=== PATIENT | male | born 1950 | race Caucasian/White ===

== ENCOUNTER → 2019-12-27 09:06 | Outpatient (BNVA) | payer MEDICARE, OTHER, SELFPAY | PROVIDERS: Family Provider Family Medicine; PCP Family Medicine; Visit Provider Internal Medicine Cardiovascular Disease | DX: I10 Essential (primary) hypertension (principal); R94.39 Abnormal result of other cardiovascular function study; E78.5 Hyperlipidemia, unspecified; R07.2 Precordial pain; E09.9 Drug or chemical induced diabetes mellitus without complications | CPT/HCPCS: 80061 ==

== ENCOUNTER → 2020-03-10 14:43 | Outpatient (BNVA) | payer MEDICARE, OTHER, SELFPAY | PROVIDERS: Family Provider Family Medicine; PCP Family Medicine; Visit Provider Internal Medicine Cardiovascular Disease | DX: R94.39 Abnormal result of other cardiovascular function study (principal); I10 Essential (primary) hypertension; E78.5 Hyperlipidemia, unspecified; R07.2 Precordial pain; E09.9 Drug or chemical induced diabetes mellitus without complications | CPT/HCPCS: 87635 ==

== ENCOUNTER → 2020-07-26 09:32 | Outpatient (BNVA) | payer MEDICARE, OTHER, SELFPAY | PROVIDERS: Family Provider Family Medicine; PCP Family Medicine; Visit Provider Internal Medicine Cardiovascular Disease | DX: Z11.59 Encounter for screening for other viral diseases (principal) | CPT/HCPCS: 87635 ==

== ENCOUNTER 2020-07-28 08:57 | Observation (INO) | payer MEDICARE, OTHER, SELFPAY ==
[2020-07-26 11:48] LABS: Basophils % 0.6 %; Eosinophils # 0.1 10^3/uL (0.0-0.8); Eosinophils % 1.8 %; Hematocrit 45.2 % (42.0-52.0); Hemoglobin 14.6 g/dL (11.7-16.6); Lymphocytes # 0.9 10^3/uL (0.8-4.8); Lymphocytes % 25.4 %; Mean Corpuscular HGB Conc 32.3 g/dL (30.0-36.0); Mean Corpuscular Hemoglobin 30.5 pg (28.0-34.0); Mean Corpuscular Volume 94.4 fL (80-94); Mean Platelet Volume 9.1 fL (7.4-10.4); Monocytes # 0.5 10^3/uL (0.2-0.9); Neutrophils # 1.93 10^3/uL (1.8-7.7); Neutrophils % 57.6 %; Nucleated Red Blood Cells % 0 %; Platelet Count 239 10^3/cmm (130-400); Red Blood Count 4.79 10^6/uL (4.1-5.3); Red Cell Distribution Width 13.4 % (12.1-15.1); White Blood Count 3.4 10^3/uL (4.0-10.0)
[2020-07-26 11:59] LABS: INR 0.95 (0.8-1.2)
[2020-07-26 12:07] LABS: Anion Gap 12.6 (5-19); Blood Urea Nitrogen 25 mg/dL (8-23); Calcium 10.1 mg/dL (8.5-10.5); Carbon Dioxide 28 mmol/L (22-29); Chloride 102 mmol/L (98-107); Glomerular Filtration Rate 60.2 mL/min (90-130); Glucose 200 mg/dL (65-115); Osmolality Calculated 288 mOsm/kg (285-295); Potassium 4.6 mmol/L (3.5-5.1); Sodium 138 mmol/L (136-145)
[2020-07-28] VITALS (39 sets, daily range): BP systolic 86–127; BP diastolic 57–73; PULSE 56–78; RESP 15–26; TEMP 36.6–37.1; O2SAT 93–98; BMI 27.6
[2020-07-28] MEDS: diphenhydrAMINE 50 mg Capsule PO (06:34)
--- NOTE | 2020-07-28 07:00 | XACV_ITS ---
Ht: 180 cm Wt: 90 kg BSA: 2.14 m2 Gender: Male : 1950 Exam Priority: Routine Procedure(s): Procedure Description: Diagnostic procedure Procedure Description: PCI procedure Procedure Description: Left Heart Catheterization Procedure Description: PTCA Diagnostic Cath Status: Elective Diagnostic Findings LM has 0% stenosis. LAD is a medium caliber vessel which appears to taper off towards the LV apex. The proximal LAD was found to have mild to moderate diffuse coronary calcification. The first diagonal branch was found to have around 50% ostial narrowing. 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 The distal artery was found to relatively small caliber vessel. The circumflex artery is a medium caliber vessel which was found to have a segmental narrowing of around 50 to 60% proximally. The distal artery was found to have no significant stenotic lesions. Right coronary artery is a medium caliber vessel which was found to have a relatively high takeoff. The proximally and the mid segment was found to have minimal diffuse intimal irregularities. The PLV branch was found to have an ostial around 70 to 80% lesion. The PDA branch was found to no significant stenotic lesions. Coronary angiography shows right dominance. The intermedius artery was small caliber vessel with no significant stenotic lesion. PCI Indication: NSTE - ACS Interventional Findings RPAV: 80% stenosis treated with Drug Eluting Stent. 0% residual stenosis, MIMI: 3 flow. Successful PCI to Ostial PLV . Lesion was treated directly with NAVNEET INTEGRITY 3.0x12 mm stent posted at high LACIE . Stent was then post-dilated with NC EUPHORA 3.0 x 8 mm at 14 LACIE in its entire length to ensure proper approximation. Excellent angiographic result with MIMI-3 flow was achieved. . Conclusions This is a 69-year-old white male with a history of high blood pressure, dyslipidemia, type 2 diabetes, presented with complaints of some atypical chest symptoms and dyspnea on exertion. He also was complaining of easy fatigability. He had a myocardial perfusion imaging which revealed inconsistent reversible defect in the inferoapical region, suggestive of ischemia in the distribution of the right coronary artery. Initially it was decided to treat him medically. Because of his ongoing, worsening of the symptoms, in order to further evaluate his coronary status, a cardiac catheterization was recommended. Patient underwent left heart catheterization with left and right coronary angiogram and LV angiogram today. The findings are as follows. High-grade lesion(-70 to 80%) in the ostium of the PLV branch of the right coronary artery. 50 to 60% lesion in the proximal circumflex artery. Mild disease in the other vessels. Mild to moderate coronary calcification in the proximal segments of the artery. LV ejection fraction of 50% with mild diffuse hypokinesia of the LV apex. Normal LVEDP. I reviewed and discussed the cardiac catheterization findings with Dr. Velazco. Based on the patient's clinical presentation and the other objective findings, it was thought to be appropriate to consider PCI of the PLV lesion. At this point, Dr. Velazco took over further management of this patient. RPAV was treated with Drug Eluting Stent. Recommendations 1-Return to inpatient for close monitoring and routine cath care 2-Risk factor modification for secondary prevention 3-Statin and aspirin 81 mg life--long, if tolerated 4-Continue Plavix 75mg p.o. daily for at least one year. We will assess at the end of one year again to continue if further or not 5-Continue optimal medical management 6-Follow up with Dr. Montero in four weeks and your primary care in 10 days . Diagnostic RX Recommendation: PCI w/o planned CABG Ejection Fraction: 50.0 % LV EDP: 10 mmHg Left Ventriculography Findings: The LV angiogram was performed the VICKERS projection. The LV cavity appears to be of normal size. There was mild diffuse hypokinesia of the LV apex. The overall ejection fraction was around 50%. The LVEDP was 10 mmHg which went up to 16, following the LV angiogram. No significant mitral valve prolapse or any mitral regurgitation.. Pressures Phase:Rest AO : 99 mmHg / 53 mmHg ( 72 mmHg ) @ 2:45:00 AM 104 mmHg / 48 mmHg ( 72 mmHg ) @ 2:45:00 AM LV : 104 mmHg / -4 mmHg / @ 2:44:00 AM 103 mmHg / -4 mmHg / @ 2:44:00 AM 106 mmHg / -3 mmHg / @ 2:45:00 AM 106 mmHg / -3 mmHg / @ 2:45:00 AM Valves Phase:DefaultPhase AV : 12.0 mmHg @ 8:43:32 AM AV Mean Gradient: 12.0 mmHg @ 8:43:32 AM Clinical Evaluation EBL: 5mL-10mL Procedural Details Procedure Consent Obtained. Admit Source: Out Patient. Pre-Procedure Time Out. Identified patient by full name and date of as verbalized by the patient/guarantor. Does the consent match the physician's order: Yes. Accurate & Complete Informed Consent: Yes. Inpatient/Outpatient History & Physical on Chart: Yes. If H&P is completed, is and addenduem needed: No; If yes, is the addendum complete: N/A. Visualize and Verify Site with Patient/Guarantor: N/A. Relevant Radiology Images available: N/A. Pre-op teaching completed and patient verbalized understanding. The risks, benefits, and alternatives of sedation and/or procedure were discussed by physician. The patient agrees to continue. Procedure started. Correct patient, site and procedure confirmed by cath team. PERRLA. 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 Lungs clear x 5 lobes. IV Site on Arrival: 20 gauge in the left anticubital. Pre Procedural Pulses: bilateral dorsalis pedis was 2+. Pre Procedural Pulses: bilateral posterior tibial was 2+. Pre Procedural Pulses: bilateral radial was 3+. Oxygen started at 2liters/min via nasal canula. bilateral groins was prepped with chloroprep then draped in the usual sterile fashion. right radial was prepped with chloroprep then draped in the usual sterile fashion. Baseline sample Acquired. HR: 62 BPM. Physician notified. Physician arrived. Physician scrubbed in. Immediate Pre-Procedure Time Out. Correct Patient: Yes; Correct Procedure: Yes; Correct Site: Yes; Correct Patient Position: Yes; Correct Supplies: Yes; Dried Flammable Prep: Yes; Blood Products Available: N/A;. Lidocaine 1% infiltrated to the right radial. Arterial access obtained. A 5 yemeni Everette catheter in over wire. wire out. Multiple views taken of left coronary artery. Catheter redirected to the RCA. Catheter out. A 5 yemeni JR4 catheter in over wire. wire out. Multiple views taken of right coronary artery. Dr. Velazco notified. A 5 yemeni Angled Pig catheter in over wire. EDP Sample taken: LV 104/-5,15; HR: 66 BPM; SpO2: 98%. LV gram performed in VICKERS @ 10 mL/second for a total of 30 mL. EDP Sample taken: LV 106/-4,16; HR: 67 BPM; SpO2: 97%. Pullback taken: LV 106/-4,16; AO 99/53(72); Mean: 12mmHg, Peak to Peak: 12mmHg, SEP: 8sec/min; HR: 67 BPM; SpO2: 98%. Dr. Velazco arrived. going over results. Dr. Montero notified . Dr. Velazco scrubbed in. 6 yemeni JR 4 guide catheter was inserted over the wire. Hardy guidewire was advanced through the guide catheter to lesion in the PLV. Inflation Number : 1 A MAILE Morrissey NAVNEET 3.0X12 CHRISTIANNE -Lot Number#[id number] exp date 02-12-2022 was prepped and advanced across the PLV. The stent was deployed at 10 LACIE for 0:22 seconds. deployment balloon out. Inflation number : 1 A MAILE WEEKS EUPHORA RX [id number] BALLOON was prepped and advanced across the PLV , then inflated to 14 LACIE for 0:33 seconds. Balloon and wire out. Results checked. Balloon inserted to lesion in the PLV. Balloon out. balloon not inflated. wire and 2nd balloon are out. No inflation. catheter out. TR band placed. Hemostasis obtained. Post Procedure: Pulses reassessed and unchanged. PERRLA. 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 No VTE prophylaxis required. Total IV fluids: 350 mL. Contrast type used: Omnipaque 300 mgI/mL, 500 mL bottle. Contrast Material : Omnipaque 308 ml. Complications: none. Estimated blood loss: 5mL-10mL. [facility] Clinical Fraility Score: 3: Managing Well. Rodbuster Indications: New Onset Angina. Chest Pain Symptom Assessment: Abnormal stress test. Cardiovascular Instability: No,. Chest Pain Symptom Assessment: Typical Angina Symptoms. PCI Indication: New Onset Angina. Post-op diagnosis: Successful angioplasty with stent. A TR Band was successful obtaining hemostatsis at the Right Radial artery insertion site. Procedure completed. Patient transferred by wheelchair to 1st floor. Medication's Wasted: Lidocaine 1% = 18 mL. Medication's Wasted: Nitro = 49.4 mg. Medication's Wasted: Heparin = 2000 units. Medication's Wasted: Other = verapamil 1.5 mg. Vital chart was stopped. Site: Right Radial artery Sheath Size: 6 Fr Hemostasis Method: TR Band Hemostasis Success: Successful Procedure Medications Start: 7:11 AM Stop: 7:11 AM Medication: Versed Amount: 1 mg Route: I.V. Start: 7:11 AM Stop: 7:11 AM Medication: Fentanyl Amount: 50 mcg Route: I.V. Start: 7:24 AM Stop: 7:24 AM Medication: 0.9% Saline Amount: 250 ml Route: I.V. bolus Start: 7:25 AM Stop: 7:25 AM Medication: Nitrogylcerin Amount: 200 mcg Route: I.A. Start: 7:29 AM Stop: 7:29 AM Medication: Versed Amount: 1 mg Route: I.V. Start: 7:29 AM Stop: 7:29 AM Medication: Fentanyl Amount: 50 mcg Route: I.V. Start: 7:29 AM Stop: 7:29 AM Medication: Heparin Amount: 5000 units Route: I.V. Start: 8:03 AM Stop: 8:03 AM Medication: Heparin Amount: 4000 units Route: I.V. Start: 8:08 AM Stop: 8:08 AM Medication: Aggrastat 12.5 mg/250 mL Amount: 45 ml Route: I.V. bolus Start: 8:09 AM Stop: 8:09 AM Medication: Aggrastat 12.5 mg/250 mL Amount: 16.2 ml/hr Route: I.V. drip Start: 8:14 AM Stop: 8:14 AM Medication: Nitrogylcerin Amount: 200 mcg Route: I.C. I, the attending physician, have reviewed and verified all procedure medications. Yes, all medications given per verbal order History/Risk Factors Hypertension: Yes Dyslipidemia: Yes Diabetic Therapy: Oral Peripheral Arterial Disease (PAD): No Myocardial Infarction (HI): No Obesity: No Renal Disease: No Tobacco Use: Never Prior Interventions PCI: No CABG: No Valve Surgery: No Report Signatures Interventional Workflow - Finalized by: Izzy Velazco MD on 08/10/2020 5:48:50 PM Diagnostic Workflow - Finalized by:Dr Cristian Montero MD [facility] on 07/28/2020 4:38:32 PM
--- NOTE | 2020-07-28 07:13 | W.PM.OPSUD ---
Surgery/Procedure H&P Update DATE OF PROCEDURE: July 28, 2020 DATE H&P PERFORMED: 07/19/20 H&P UPDATE INFORMATION: I have reviewed H&P completed within last 30 days, I have examined patient prior to procedure and No changes to prior documentation PREOP DIAGNOSIS: Possible ASHD PLANNED PROCEDURE: Operation Date: 07/28/20 07:00 Proposed Procedures p Cardiac Catheterization(Left) - Cristian Montero MD PATIENT REASSESSED PRIOR TO SEDATION, WITH NO CHANGE NOTED: Yes PHYSICAL EXAM: alert, oriented x 3, clear to auscultation bilaterally and regular rate & rhythm AIRWAY EVAL/ANESTHESIA PLAN: normal airway, see other exam findings, ASA II, Risks, benefits & alternatives of sedation and/or procedure discussed and Patient agrees to continue as planned
[2020-07-28] MEDS: clopidogrel 300 mg Tablet 600 MG PO (09:52)
[2020-07-28] MEDS: pantoprazole DR 40 mg Tablet PO (09:52)
[2020-07-28 10:02] LABS: Glucose Point of Care 175 mg/dL (70-110)
[2020-07-28 16:56] LABS: Glucose Point of Care 158 mg/dL (70-110)
[2020-07-28] MEDS: atorvastatin 40 mg Tablet PO (20:13)
[2020-07-28] MEDS: sodium chloride 0.9% 1,000 ML 100 ML IV (20:13)
[2020-07-28] MEDS: aspirin 81 mg EC Tablet PO (20:13)
[2020-07-28] MEDS: metoprolol succinate ER (24 HR) 25 mg Tablet PO (20:13)
--- NOTE | 2020-07-28 21:41 | PC.NURSE ---
Patient does not have any complaints at this time. Right wrist post-cath site WNL. Will monitor.
[2020-07-29] VITALS (7 sets, daily range): BP systolic 110–126; BP diastolic 70–78; PULSE 65–84; RESP 17–20; TEMP 36.4–36.8; O2SAT 95–98
--- NOTE | 2020-07-29 04:49 | PC.NURSE ---
Patient does not have any complaints at this time. Right wrist post-cath site WNL. Will monitor.
[2020-07-29 04:55] LABS: Basophils % 0.5 %; Eosinophils # 0.1 10^3/uL (0.0-0.8); Eosinophils % 1.7 %; Hematocrit 41.1 % (42.0-52.0); Hemoglobin 13.5 g/dL (11.7-16.6); Lymphocytes # 0.8 10^3/uL (0.8-4.8); Lymphocytes % 19.1 %; Mean Corpuscular HGB Conc 32.8 g/dL (30.0-36.0); Mean Corpuscular Hemoglobin 30.3 pg (28.0-34.0); Mean Corpuscular Volume 92.4 fL (80-94); Mean Platelet Volume 9.4 fL (7.4-10.4); Monocytes # 0.5 10^3/uL (0.2-0.9); Monocytes % 12.7 %; Neutrophils # 2.65 10^3/uL (1.8-7.7); Neutrophils % 65.8 %; Nucleated Red Blood Cells % 0 %; Platelet Count 184 10^3/cmm (130-400); Red Blood Count 4.45 10^6/uL (4.1-5.3); Red Cell Distribution Width 13.4 % (12.1-15.1)
[2020-07-29 05:11] LABS: Anion Gap 15.1 (5-19); Blood Urea Nitrogen 23 mg/dL (8-23); Calcium 8.5 mg/dL (8.5-10.5); Carbon Dioxide 23 mmol/L (22-29); Chloride 105 mmol/L (98-107); Glomerular Filtration Rate 66.6 mL/min (90-130); Glucose 140 mg/dL (65-115); Osmolality Calculated 287 mOsm/kg (285-295); Potassium 4.1 mmol/L (3.5-5.1); Sodium 139 mmol/L (136-145)
[2020-07-29] MEDS: isosorbide mononitrate ER 30 mg Tablet PO (06:06)
[2020-07-29] MEDS: sodium chloride 0.9% 1,000 ML 100 ML IV (06:06)
[2020-07-29] MEDS: lisinopril 20 mg Tablet PO (08:22)
[2020-07-29] MEDS: pantoprazole DR 40 mg Tablet PO (08:23)
--- NOTE | 2020-07-29 09:39 | PM.PN ---
Subjective Subjective: Interval history: The patient is feeling okay with no chest pain or shortness of breath. No palpitation, dizziness or syncopal episodes. No arrhythmias on the monitor. No hematoma or bleeding at the radial arterial puncture site. He underwent cardiac authorization followed by PCI of the PLV lesion yesterday. He had an uneventful course so far. Medications: Reviewed: Yes Medication Review Details: Current Medications Acetaminophen (Tylenol) 650 mg PO Q6H PRN PRN Reason: MILD PAIN Al Hydrox/Mg Hydrox/Simethicone (Maalox) 30 ml PO Q15M PRN PRN Reason: INDIGESTION Alprazolam (Xanax) 0.25 mg PO TID PRN PRN Reason: ANXIETY Aspirin (Aspirin Ec) 81 mg PO BEDTIME [facility] Last Admin: 07/28/20 20:13 Dose: 81 mg Documented by: Atorvastatin Calcium (Lipitor) 40 mg PO BEDTIME [facility] Last Admin: 07/28/20 20:13 Dose: 40 mg Documented by: Atropine Sulfate (Atropine) 0.5 mg IVP PRN PRN PRN Reason: Symptomatic bradycardia Fentanyl (Sublimaze) 50 mcg IVP PRN PRN PRN Reason: Prior to sheath removal Sodium Chloride (Sodium Chloride 0.9%) 1,000 mls @ 100 mls/hr IV .Q10H [facility] Last Admin: 07/29/20 06:06 Dose: 100 mls/hr Documented by: Isosorbide Mononitrate (Imdur) 30 mg PO QAM [facility] Last Admin: 07/29/20 06:06 Dose: 30 mg Documented by: Lisinopril (Prinivil) 20 mg PO DAILY [facility] Last Admin: 07/29/20 08:22 Dose: 20 mg Documented by: Magnesium Hydroxide (Milk Of Magnesia) 30 ml PO DAILY PRN PRN Reason: CONSTIPATION Metoprolol Succinate (Toprol Xl) 25 mg PO BEDTIME [facility] Last Admin: 07/28/20 20:13 Dose: 25 mg Documented by: Naloxone HCl (Narcan) 0.1 mg IVP Q2M PRN PRN Reason: RESPIRATORY RATE < 8/MIN Nitroglycerin (Nitrostat) 0.4 mg SUBLINGUAL Q5M PRN PRN Reason: Chest Pain Non-Formulary Medication (Dapagliflozin [Farxiga]) 10 mg PO QAM [facility] Last Admin: 07/29/20 06:06 Dose: Not Given Documented by: Pantoprazole Sodium (Protonix) 40 mg PO DAILY JULIO C Last Admin: 07/29/20 08:23 Dose: 40 mg Documented by: Temazepam (Restoril) 15 mg PO BEDTIME PRN PRN Reason: INSOMNIA Vitals/I&O/Wt Last Vital Signs Temp 98.1 F 07/29/20 08:00 Pulse 84 07/29/20 08:00 Resp 20 H 07/29/20 08:00 BP 121/72 07/29/20 08:00 Pulse Ox 96 07/29/20 08:00 07/28/20 07/29/20 07/29/20 22:59 06:59 14:59 Intake Total 240 / 480 1288.333 / 1768.333 360 / 360 Balance 240 / 480 1288.333 / 1768.333 360 / 360 Weight last 48 hrs Weight 198 lb Physical Exam Narrative: EXAM NARRATIVE: GENERAL: The patient is alert and oriented times three. Not in any acute distress. HEENT: No significant pallor, icterus or lymphadenopathy.Oral cavity: There are no mucous membrane lesions. NECK: Trachea appears to be central. No masses noted. No JVD or thyromegaly appreciated. RESPIRATORY: Chest is symmetrical. No intercostals muscle retraction or any accessory muscle activation. There is no chest wall tenderness. Breath sounds are heard bilaterally. No rales or rhonchi heard. No evidence of any consolidation. BREASTS: Deferred. HEART: The heart sounds are normal. No S3 or S4. No significant murmurs. No pericardial rub ABDOMEN: No vessel pulsations or distention. No tenderness. No organomegaly appreciated. Bowel sounds are normally heard. : Deferred. RECTAL: Deferred. LYMPHATIC: No lymphadenopathy noted in the neck or groin. EXTREMITIES: No edema or cyanosis. No clubbing. No hematoma or bleeding at the radial arterial puncture site MUSCULOSKELETAL: No acute joint deformities or swelling SKIN: There are no significant rashes or ecchymosis NEUROPSYCHIATRIC: The patient is alert and oriented x3. Appears to be in a good mood. No tremors or rigidity noted. Data : 07/29/20 04:00 07/29/20 04:00 A&P Assessment and plan (1) Atherosclerotic heart disease of [place] coronary artery with other forms of angina pectoris: Patient underwent a cardiac authorization yesterday which revealed a high-grade lesion in the ostium of the PLV branch of the right coronary artery. He also had around 50 to 60% lesion in the proximal circumflex artery. Underwent PCI of the PLV lesion. Currently remaining stable with no specific symptoms. His overall functional status is improving. He will continue the Plavix aspirin and Lipitor in addition to current medications. Status: Acute (2) Hypertension: Currently normotensive. Continue with current medications. Status: Acute Qualifiers: Hypertension type: essential hypertension Qualified Code(s): I10 - Essential (primary) hypertension (3) Diabetes: Patient is on multiple oral hypoglycemics. Metformin was held. He may restart the metformin on next Friday. Continue on all the other current medications. 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 Status: Acute Additional A&P Information Since the patient is remained stable with no new symptoms, he is being discharged home today. [facility] will [facility] next Friday by the nurse practitioner. I will be seeing him in the office in 1 month. Attestations Medical Necessity Statement*: Patient discharged home today Coding Level of Care Code Acute Sheet Metal Journeyman for Tone Tillman Diagnoses Atherosclerotic heart disease of [place] coronary artery with other forms of angina pectoris I25.118 Hypertension I10 Hypertension type: essential hypertension Diabetes E09.9 Diabetes mellitus type: drug or chemical induced Diabetes mellitus bed bug exterminator insulin use: without mcc use Diabetes mellitus complication status: without complication Dyslipidemia E78.5
[2020-07-29] MEDS: clopidogrel 75 mg Tablet PO (11:30)
--- NOTE | 2020-07-31 11:46 | PC.RESP ---
PATIENT DOES NOT HAVE A QUALIFYING HX OF LUNG DISEASE AND DOES NOT QUALIFY FOR PULMONARY REHAB AT THIS TIME.
== END 2020-07-29 12:35 | disposition home or self-care (01) ==
LOC: CSU 09:16
PROVIDERS: Internal Medicine Cardiovascular Disease; Admitting Provider Internal Medicine Cardiovascular Disease; Family Provider Family Medicine; PCP Family Medicine; Visit Provider Internal Medicine Cardiovascular Disease
DX: I25.118 Atherosclerotic heart disease of native coronary artery with other forms of angina pectoris (principal); R94.39 Abnormal result of other cardiovascular function study; E78.5 Hyperlipidemia, unspecified; I10 Essential (primary) hypertension; E11.9 Type 2 diabetes mellitus without complications; Z79.82 Long term (current) use of aspirin; Z79.84 Long term (current) use of oral hypoglycemic drugs; Z82.49 Family history of ischemic heart disease and other diseases of the circulatory system
CPT/HCPCS: 12345; 36415; 36416; 80048; 82962; 85025; 85610; 86850; 86900; 93452; 96360; 96361; C1725; C1769; C1874; C1887; C1894; C9600; G0378; J1644; J2250; J3010; J3246; J3490; J7030; Q0163; Q9967

== ENCOUNTER → 2020-08-04 11:59 | Outpatient (BNVA) | payer MEDICARE, OTHER, SELFPAY | PROVIDERS: Family Provider Family Medicine; PCP Family Medicine; Visit Provider Nurse Practitioner Family | DX: I25.118 Atherosclerotic heart disease of native coronary artery with other forms of angina pectoris (principal); K21.9 Gastro-esophageal reflux disease without esophagitis; Z95.5 Presence of coronary angioplasty implant and graft | CPT/HCPCS: 80048 ==

== ENCOUNTER 2020-09-19 14:33 | Outpatient (RCR) | payer MEDICARE, OTHER, SELFPAY | END 2020-09-30 23:59 | disposition home or self-care (01) | LOC: CR 14:33 | PROVIDERS: Family Provider Family Medicine; PCP Family Medicine; Referring Provider Internal Medicine Cardiovascular Disease; Visit Provider Internal Medicine Cardiovascular Disease | DX: I25.118 Atherosclerotic heart disease of native coronary artery with other forms of angina pectoris (principal); Z95.5 Presence of coronary angioplasty implant and graft | CPT/HCPCS: 93798 ==

== ENCOUNTER 2020-10-01 08:50 | Outpatient (RCR) | payer MEDICARE, OTHER, SELFPAY | END 2020-10-30 23:59 | disposition home or self-care (01) | LOC: CR 08:50 | PROVIDERS: Family Provider Family Medicine; PCP Family Medicine; Referring Provider Internal Medicine Cardiovascular Disease; Visit Provider Internal Medicine Cardiovascular Disease | DX: Z95.5 Presence of coronary angioplasty implant and graft (principal) | CPT/HCPCS: 93798 ==

== ENCOUNTER 2020-10-31 11:33 | Outpatient (RCR) | payer MEDICARE, OTHER, SELFPAY | END 2020-11-30 23:59 | disposition home or self-care (01) | LOC: CR 11:33 | PROVIDERS: Family Provider Family Medicine; PCP Family Medicine; Referring Provider Internal Medicine Cardiovascular Disease; Visit Provider Internal Medicine Cardiovascular Disease | DX: Z95.5 Presence of coronary angioplasty implant and graft (principal) | CPT/HCPCS: 93798 ==

== ENCOUNTER 2020-12-05 11:02 | Outpatient (RCR) | payer MEDICARE, OTHER, SELFPAY | END 2020-12-31 23:59 | disposition home or self-care (01) | LOC: CR 11:02 | PROVIDERS: Family Provider Family Medicine; PCP Family Medicine; Referring Provider Internal Medicine Cardiovascular Disease; Visit Provider Internal Medicine Cardiovascular Disease | DX: Z95.5 Presence of coronary angioplasty implant and graft (principal) | CPT/HCPCS: 93798 ==

== ENCOUNTER 2021-01-24 15:19 | Outpatient (CLI) | payer MEDICARE, OTHER, SELFPAY ==
--- NOTE | 2021-01-24 15:31 | USCV_ITS ---
Bob Acevedo Age: 70 Gender: M : 1950 Exam Date: 01/24/2021 15:33 Ordering Phys: Enriqueta Caraballo APN Technologist: Ashley Alvarado Exam Location: [facility] Indication: screening HISTORY: Diameter (cm) AP x Transverse x Length Velocity (cm/s) Waveform Prox Aorta: 2.02 x 1.62 x 98.40 Mid Aorta: 1.73 x 2.08 x 88.70 Distal Aorta: 1.38 x 1.94 x 68.60 Right Iliac Prox: 1.05 x 1.38 x 65.10 Left Iliac Prox: 1.00 x 1.29 x 60.30 Stent Prox Landing x x Aneurysmal Sac Max x x Lt Lat Sac Dim Rt Lat Sac Dim Stent Dist Landing x x Right Iliac Stent x x Left Iliac Stent x x Right Renal Art Left Renal Art FINDINGS: CONCLUSIONS No evidence of abdominal aortic or bilateral iliac aneurysm. Moderate arteriovascular disease within the abdominal aorta. Ruddy Jansen MD (Electronically Signed) Final Date: 24 January 2021 16:56 S
== END 2021-01-24 15:20 | disposition home or self-care (01) ==
LOC: US 15:20
PROVIDERS: PCP Nurse Practitioner; Visit Provider Nurse Practitioner
DX: Z13.6 Encounter for screening for cardiovascular disorders (principal); Z87.891 Personal history of nicotine dependence
CPT/HCPCS: 76706

== ENCOUNTER 2022-01-07 06:55 | Outpatient (CLI) | payer MEDICARE, OTHER, SELFPAY ==
[2022-01-07 07:03] VITALS: BMI 27.1
--- NOTE | 2022-01-07 07:29 | ECG_ITS ---
[facility] Test Date: 2022-01-07 Pat Name: Bob Acevedo Department: Room: Gender: Male Dewaxer: Katerine Wu : 1950 Requested By: Cristian Montero Order Number: [id number] Catalina MD: Cristian Montero M.D. Interpretive Statements NAME OF STUDY: EXERCISE SESTAMIBI STRESS TEST INDICATION: Chest Pain, PROCEDURE: The baseline electrocardiogram showed normal sinus rhythm with normal ST-Ts. At the baseline, the patient's blood pressure was 135/79 mm Hg with a heart rate of 88. The patient exercised for 5 minutes and 58 seconds on a standard Kali protocol. Patient attained a maximum heart rate of 148 beats per minute(98% of the maximum predicted heart rate) with a blood pressure at the peak exercise of 195/67 mm Hg. The EKG at the peak exercise revealed some nonspecific ST-T changes in the inferior leads. Patient did not have any chest pain or any significant arrhythmis with the exercise Sestamibi was injected 1 minute prior to the peak exercise During the recovery phase, there were no new changes. Blood pressure at the end of the recovery phase was 128/81 mm Hg with a heart rate of 88 per minute. CONCLUSION: 1. Some nonspecific EKG changes with the treadmill exercise 2. No exercise-induced chest pain or cardiac arrhythmia 3. Fair exercise tolerance, attained a maximum of 7.0 METs 4. Sestamibi/Sestamibi perfusion results pending; see separate report. Electronically Signed On 01-25-2022 10:39:34 RV REPAIRER by Cristian Montero M.D. [id number]
--- NOTE | 2022-01-07 07:30 | NMCV_ITS ---
NM bear perf SPECT r/s* [id number] Bob Acevedo Age: 71 Gender: M : 1950 Exam Date: 01/07/2022 08:00 Ordering Phys: Cristian Montero MD ([email or web address]) Technologist: TENA Snider Exam Location: [facility] Indications: CHEST PAIN STRESS TEST Please see separate stress test report in [facility] for full findings IMAGE PROTOCOL Rest/Stress 1 Exercise Day Radiopharmaceutical Dose (mCi) Administration Site Administered by Rest: Tc-99m 10.9 IV TENA Bernal Sestamibi Stress:Tc-99m 32.9 IV TENA Bernal Sestamibi Rest: 07-Jan-2022 60 Discovery 630 Stress: 07-Jan-2022 30 Discovery 630 Radiopharmaceutical was injected at 93 % maximum heart rate. Images obtained in supine and prone position. SPECT RESULTS Technical Quality: Excellent Raw Data Analysis: Normal Image Corrections: No attenuation or motion correction applied Summed Stress Score: 2 Summed Rest Score: 6 Summed Difference Score: 1 PERFUSION FINDINGS Small area of moderately decreased tracer uptake in the mid and apical inferior wall region, with some reversibility in the mid inferior region, with the supine imaging. However with the prone imaging, no significant reversibility was noted. FUNCTIONAL RESULTS (calculated via Gated SPECT) Stress Image LV EF (%): 68 Stress EDV (mL):69 TID: 0.98 Stress ESV (mL):22 FUNCTIONAL FINDINGS: Segmental wall motion analysis revealing no gross wall motion abnormalities IMPRESSIONS #1. Myocardial perfusion imaging revealing small area of decreased tracer uptake in the mid and apical inferior wall region, with an area of inconsistent reversibility in the mid inferior region, suggesting myocardial scarring with some ischemia in the distribution of the right coronary artery. However because of the inconsistency, the reliability is questionable. #2. Normal LV ejection fraction 68%. #3. LV wall motion analysis revealing no gross wall motion abnormalities. #4. Normal LV volume Compared to the study from 09/23/2019, the small area of ischemia at this particular region appears to be new Dr Cristian Montero MD FAC (Electronically Signed) Final Date: 21 January 2022 14:14 S
[2022-01-07 09:00] VITALS: BP 128/81; PULSE 88
== END 2022-01-07 06:56 | disposition home or self-care (01) ==
PROVIDERS: PCP Nurse Practitioner; Visit Provider Internal Medicine Cardiovascular Disease
DX: R07.9 Chest pain, unspecified (principal); I25.10 Atherosclerotic heart disease of native coronary artery without angina pectoris; R06.02 Shortness of breath
CPT/HCPCS: 78452; 93017; A9500

== ENCOUNTER → 2022-07-02 15:10 | Outpatient (BNVA) | payer MEDICARE, OTHER, SELFPAY | PROVIDERS: PCP Nurse Practitioner; Visit Provider Internal Medicine Cardiovascular Disease | DX: I25.118 Atherosclerotic heart disease of native coronary artery with other forms of angina pectoris (principal); R00.0 Tachycardia, unspecified; E78.5 Hyperlipidemia, unspecified; I10 Essential (primary) hypertension; E09.9 Drug or chemical induced diabetes mellitus without complications; Z79.84 Long term (current) use of oral hypoglycemic drugs | CPT/HCPCS: 99214 ==

== ENCOUNTER → 2022-08-26 11:05 | Outpatient (BNVA) | payer MEDICARE, OTHER, SELFPAY | PROVIDERS: Visit Provider Family Medicine | DX: I10 Essential (primary) hypertension (principal); E78.5 Hyperlipidemia, unspecified; R35.1 Nocturia; E11.9 Type 2 diabetes mellitus without complications; K21.9 Gastro-esophageal reflux disease without esophagitis; Z87.438 Personal history of other diseases of male genital organs; I25.118 Atherosclerotic heart disease of native coronary artery with other forms of angina pectoris | CPT/HCPCS: 80053; 80061; 82043; 83036; 84153; 85025 ==

== ENCOUNTER → 2023-01-17 10:09 | Outpatient (BNVA) | payer MEDICARE, OTHER, SELFPAY | PROVIDERS: PCP Family Medicine; Visit Provider Nurse Practitioner Family | DX: I25.118 Atherosclerotic heart disease of native coronary artery with other forms of angina pectoris (principal); I10 Essential (primary) hypertension | CPT/HCPCS: 99214 ==

== ENCOUNTER → 2023-02-10 10:46 | Outpatient (BNVA) | payer MEDICARE, OTHER, SELFPAY | PROVIDERS: PCP Family Medicine; Visit Provider Family Medicine | DX: E11.9 Type 2 diabetes mellitus without complications (principal) | CPT/HCPCS: 80053; 83036 ==

== ENCOUNTER → 2023-08-07 09:50 | Outpatient (BNVA) | payer MEDICARE, OTHER, SELFPAY | PROVIDERS: PCP Family Medicine; Visit Provider Internal Medicine Cardiovascular Disease | DX: I25.118 Atherosclerotic heart disease of native coronary artery with other forms of angina pectoris (principal); I10 Essential (primary) hypertension; E78.5 Hyperlipidemia, unspecified; R00.0 Tachycardia, unspecified; E11.9 Type 2 diabetes mellitus without complications; Z79.84 Long term (current) use of oral hypoglycemic drugs | CPT/HCPCS: 99214 ==

== ENCOUNTER → 2023-08-11 10:45 | Outpatient (BNVA) | payer MEDICARE, OTHER, SELFPAY | PROVIDERS: PCP Family Medicine; Visit Provider Family Medicine | DX: I10 Essential (primary) hypertension (principal); E78.5 Hyperlipidemia, unspecified; E11.9 Type 2 diabetes mellitus without complications; R35.1 Nocturia; Z87.438 Personal history of other diseases of male genital organs | CPT/HCPCS: 80053; 80061; 82043; 83036; 84153; 85025 ==

== ENCOUNTER 2023-09-02 08:45 | Outpatient (CLI) | payer MEDICARE, OTHER, SELFPAY ==
--- NOTE | 2023-09-02 10:00 | CT_ITS ---
WS: [id number] CT ABDOMEN PELVIS TECHNIQUE: Noncontrast CT of the abdomen and contrast-enhanced CT of the abdomen and pelvis with kim nal and sagittal reformatted images. CLINICAL INFORMATION: llq pain COMPARISON: None. DLP: 1213.[address] scans at [facility] use at least one of these dose optimization techniques: automated e xposure control; mA and/or kV adjustment per patient size (includes targeted exams where dose is matc hed to clinical indication); or iterative reconstruction. FINDINGS: Diffuse fatty filtration of the liver. Normal portal vein and splenic vein. Normal gallbladder. Magui l GE junction. Splenic artery calcification. Dependent atelectasis in the lung bases. Calcified granu sheldon in the lower lobes. Normal caliber abdominal aorta. No aneurysm. Adrenal glands are normal. Normal renal parenchymal enha ncement. No hydronephrosis. LEFT lower pole renal cyst measuring 3.8 x 3.0 cm. No obstructing renal or ureteral calculi. Small bladder cystocele. Enlarged prostate measuring 4.8 cm . Bilateral fat-containing inguinal hernias. Normal sigmoid colon. No evidence of high-grade small or large bowel obstruction. Normal appendix. Tortuous sigmoid colon. Grade 1 anterolisthesis L5 on S1 w ith chronic spondylolysis. IMPRESSION: 1. No obstructing renal or ureteral calculi. 2. No hydronephrosis in either kidney. 3. Mild diffuse fatty infiltration of the liver. 4. LEFT lower pole renal cyst measuring 3.8 x 3.0 cm. 5. Enlarged prostate measuring 4.8 cm. Recommend correlation PSA. 6. Chronic spondylolysis L5-S1 with grade 1 anterolisthesis 7. Small fat-containing inguinal hernias bilaterally.
[2023-09-02] MEDS: iohexol 350 mg/mL 500 mL Btl (per mL) PO (10:25)
[2023-09-02] MEDS: iohexol 350 mg/mL 500 mL Btl (per mL) IV (10:26)
== END 2023-09-02 08:46 | disposition home or self-care (01) ==
PROVIDERS: PCP Family Medicine; Visit Provider Family Medicine
DX: R10.32 Left lower quadrant pain (principal); K76.0 Fatty (change of) liver, not elsewhere classified; N28.1 Cyst of kidney, acquired; N40.0 Benign prostatic hyperplasia without lower urinary tract symptoms
CPT/HCPCS: 74178; Q9967

== ENCOUNTER → 2023-11-03 11:58 | Outpatient (BNVA) | payer MEDICARE, OTHER, SELFPAY | PROVIDERS: PCP Family Medicine; Visit Provider Family Medicine | DX: E11.9 Type 2 diabetes mellitus without complications (principal) | CPT/HCPCS: 80053; 83036 ==

== ENCOUNTER → 2024-02-05 09:43 | Outpatient (BNVA) | payer MEDICARE, OTHER, SELFPAY | PROVIDERS: PCP Family Medicine; Visit Provider Family Medicine | DX: E11.9 Type 2 diabetes mellitus without complications (principal) | CPT/HCPCS: 80053; 83036 ==

== ENCOUNTER → 2024-02-18 10:34 | Outpatient (BNVA) | payer MEDICARE, OTHER, SELFPAY | PROVIDERS: PCP Family Medicine; Visit Provider Internal Medicine Cardiovascular Disease | DX: R07.9 Chest pain, unspecified (principal); I25.118 Atherosclerotic heart disease of native coronary artery with other forms of angina pectoris; R94.39 Abnormal result of other cardiovascular function study; I10 Essential (primary) hypertension; E78.5 Hyperlipidemia, unspecified | CPT/HCPCS: 93005; 99214 ==

== ENCOUNTER → 2024-05-10 08:43 | Outpatient (BNVA) | payer MEDICARE, OTHER, SELFPAY | PROVIDERS: PCP Family Medicine; Visit Provider Family Medicine | DX: E11.9 Type 2 diabetes mellitus without complications (principal) | CPT/HCPCS: 80053; 83036 ==

== ENCOUNTER → 2024-08-10 09:48 | Outpatient (BNVA) | payer MEDICARE, OTHER, SELFPAY | PROVIDERS: PCP Family Medicine; Visit Provider Family Medicine | DX: I10 Essential (primary) hypertension (principal); E11.9 Type 2 diabetes mellitus without complications; I25.118 Atherosclerotic heart disease of native coronary artery with other forms of angina pectoris; E78.5 Hyperlipidemia, unspecified | CPT/HCPCS: 80061; 82043; 83036 ==

== ENCOUNTER → 2024-08-25 11:10 | Outpatient (BNVA) | payer MEDICARE, OTHER, SELFPAY | PROVIDERS: PCP Family Medicine; Visit Provider Internal Medicine Cardiovascular Disease | DX: I25.118 Atherosclerotic heart disease of native coronary artery with other forms of angina pectoris (principal); I10 Essential (primary) hypertension; E78.5 Hyperlipidemia, unspecified; E11.9 Type 2 diabetes mellitus without complications; R00.0 Tachycardia, unspecified; Z87.891 Personal history of nicotine dependence | CPT/HCPCS: 99214 ==

== ENCOUNTER → 2024-10-06 12:04 | Outpatient (BNVA) | payer MEDICARE, OTHER, SELFPAY | PROVIDERS: PCP Family Medicine; Visit Provider Nurse Practitioner | DX: J02.9 Acute pharyngitis, unspecified (principal) | CPT/HCPCS: 87880 ==

== ENCOUNTER → 2024-11-09 08:22 | Outpatient (BNVA) | payer MEDICARE, OTHER, SELFPAY | PROVIDERS: PCP Family Medicine; Visit Provider Family Medicine | DX: E11.9 Type 2 diabetes mellitus without complications (principal) | CPT/HCPCS: 83036 ==

== ENCOUNTER → 2024-11-11 16:07 | Outpatient (BNVA) | payer MEDICARE, OTHER, SELFPAY | PROVIDERS: PCP Family Medicine; Visit Provider Internal Medicine Cardiovascular Disease | DX: R07.9 Chest pain, unspecified (principal) | CPT/HCPCS: 93005; 99215 ==

== ENCOUNTER 2024-12-09 11:40 | Outpatient (CLI) | payer MEDICARE, OTHER, SELFPAY ==
[2024-12-09 12:07] LABS: Basophils % 0.5 %; Eosinophils # 0.1 10^3/uL (0.0-0.8); Eosinophils % 2.1 %; Hematocrit 44.2 % (37-53); Lymphocytes # 1.2 10^3/uL (0.8-4.8); Mean Corpuscular Hemoglobin 30.4 pg (27-33); Mean Corpuscular Volume 92.1 fl (82-101); Monocytes # 0.6 10^3/uL (0.2-0.9); Monocytes % 14.4 %; Nucleated Red Blood Cells % 0 %; Platelet Count 223 10^3/cmm (157-399); Red Cell Distribution Width 13.7 % (12.1-15.1); White Blood Count 4.36 10^3/uL (3.29-11.43)
[2024-12-09 12:25] LABS: INR 0.97 (0.8-1.2)
[2024-12-09 12:30] LABS: Anion Gap 15.4 (5-19); Blood Urea Nitrogen 26 mg/dL (8-23); Calcium 9.1 mg/dL (8.5-10.5); Carbon Dioxide 24 mmol/L (22-29); Chloride 103 mmol/L (98-107); Glucose 126 mg/dL (65-115); Osmolality Calculated 292 mOsm/kg (285-295); Potassium 4.4 mmol/L (3.5-5.1); Sodium 138 mmol/L (136-145)
== END 2024-12-09 11:41 | disposition home or self-care (01) ==
LOC: LAB 11:42
PROVIDERS: PCP Family Medicine; Visit Provider Internal Medicine Cardiovascular Disease
DX: R06.02 Shortness of breath (principal); I48.91 Unspecified atrial fibrillation; I25.118 Atherosclerotic heart disease of native coronary artery with other forms of angina pectoris; Z79.01 Long term (current) use of anticoagulants
CPT/HCPCS: 36415; 80048; 85025; 85610; 86850; 86900

== ENCOUNTER 2024-12-14 09:29 | Observation (INO) | payer MEDICARE, OTHER, SELFPAY ==
[2024-12-14] VITALS (55 sets, daily range): BP systolic 104–144; BP diastolic 50–86; PULSE 56–88; RESP 9–28; TEMP 36.4; O2SAT 90–98; BMI 28.5
[2024-12-14] MEDS: aspirin 325 mg Tablet PO (06:16)
[2024-12-14] MEDS: diphenhydrAMINE 50 mg Capsule PO (06:16)
--- NOTE | 2024-12-14 07:14 | P.HPUD_ITS ---
Surgery/Procedure H&P Update DATE OF PROCEDURE: December 14, 2024 DATE H&P PERFORMED: 12/14/24 H&P UPDATE INFORMATION: I have reviewed H&P completed within last 30 days, I have examined patient prior to procedure and No changes to prior documentation PREOP DIAGNOSIS: ASHD PRIMARY INDICATION FOR PROCEDURE: Chest pain / stress test, ASHD PLANNED PROCEDURE: Operation Date: 12/14/24 07:00 Proposed Procedures p Cardiac Catheterization - [facility] w/wo LV & Coros(Left) - Cristian Montero MD PATIENT REASSESSED PRIOR TO SEDATION, WITH NO CHANGE NOTED: Yes PHYSICAL EXAM: alert, oriented x 3, clear to auscultation bilaterally and regular rate & rhythm AIRWAY EVAL/ANESTHESIA PLAN: see other exam findings, ASA III, Monitored Anesthesia, Local Anesthesia, Risks, benefits & alternatives of sedation and/or procedure discussed and Patient agrees to continue as planned
--- NOTE | 2024-12-14 07:16 | PM.HP ---
Providers/Chief Complaint Admitting Physician: POP Mnotero MD Primary Care Provider: Merry Meyer MD Chief Complaint: I25.118 History of Present Illness Bob Acevedo is a 74 year old male with a history of atherosclerotic heart diseas, high blood pressure, dyslipidemia and type 2 diabetes, present with increasing episodes of chest tightness, dyspnea on exertion. He had a Myocardial perfusion imaging in 2021 which was slightly abnormal. So it was decided to treat her medically at that time. But lately he been having symptoms of exertional angina, with the significant limitation of his activities. His symptoms are highly suggesting underlying coronary ischemia. He has having some unstable anginal symptoms. In view of his ongoing symptoms, history of ASHD and previous PCI, diastolic appropriate to go ahead with a repeat cardiac catheterization to reevaluate his coronary status to decide on further management. Medications/Allergies Home Medications Medication Instructions Recorded Confirmed Last Taken Type aspirin 81 mg tablet,delayed 81 mg PO BEDTIME 12/23/19 12/14/24 12/13/24 20:00 History release (Adult Low Dose Aspirin) nitroglycerin 0.4 mg sublingual 0.4 mg sublingual Q5M PRN Chest 06/24/23 12/13/24 Unknown Rx tablet (Nitrostat) Pain #25 tabs lisinopril 5 mg tablet 5 mg PO DAILY #90 tabs 11/03/23 12/14/24 12/13/24 07:00 Rx metformin 500 mg tablet 500 mg PO BID #180 tabs 10/29/24 12/14/24 12/13/24 07:00 Rx insulin glargine 100 unit/mL (3 20 unit (0.2 mL) SUBCUT BID #15 mL 11/09/24 12/14/24 12/13/24 07:00 Rx mL) subcutaneous pen (Basaglar KwikPen U-100 Insulin) isosorbide mononitrate 30 mg 30 mg PO DAILY #30 tabs 11/11/24 12/14/24 12/13/24 07:00 Rx tablet,extended release 24 hr atorvastatin 40 mg tablet 40 mg PO BEDTIME 12/14/24 12/14/24 12/13/24 20:00 History clopidogrel 75 mg tablet 75 mg PO DAILY 12/14/24 12/14/24 12/13/24 07:00 History dapagliflozin propanediol 10 mg 10 mg PO DAILY 12/14/24 12/14/24 12/13/24 07:00 History tablet (Farxiga) metoprolol succinate 25 mg 25 mg PO DAILY 12/14/24 12/14/24 12/13/24 20:00 History tablet,extended release 24 hr Allergies Allergy/AdvReac Type Severity Reaction Status Date / Time No Known Allergies Allergy Verified 11/11/24 15:21 PFSH Acute PFSH: Medical History CAD (coronary artery disease) Tachycardia The EKG reveals sinus rhythm with a rate of [address]-T changes. GERD (gastroesophageal reflux disease) Abnormal cardiovascular stress test Pt would like to wait. Dyslipidemia Chest pain Hypertension Tick fever History of BPH Diabetes Urolithiasis Surgical History S/P coronary artery stent placement PLV H/O shoulder surgery Left rotator cuff x 2 Family History Brother CAD (coronary artery disease) Mother Diabetes Stroke Brother Diabetes Hyperlipidemia Hypertension Sister Diabetes Hyperlipidemia Hypertension Father Parkinson disease Denies family history of Clotting disorder Dementia Chronic kidney disease (CKD) Suicide Anesthesia complication Bleeding disorder Lung disease Cancer Social History Smoking and tobacco/nicotine status: never used tobacco/nicotine Alcohol intake: never Substance/Drug Use: never Adopted: No Caregiver/support person: No Lives independently: Yes Household members: spouse Marital status: Number of children: 3 Current occupational status: retired 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 Not in any acute distress. HEENT: No significant pallor, icterus or lymphadenopathy.Oral cavity: There are no mucous membrane lesions. NECK: Trachea appears to be central. No masses noted. No JVD or thyromegaly appreciated. RESPIRATORY: Chest is symmetrical. No intercostals muscle retraction or any accessory muscle activation. There is no chest wall tenderness. Breath sounds are heard bilaterally. No rales or rhonchi heard. No evidence of any consolidation. BREASTS: Deferred. HEART: The heart sounds are normal. No S3 or S4. No significant murmurs. No pericardial rub ABDOMEN: No vessel pulsations or distention. No tenderness. No organomegaly appreciated. Bowel sounds are normally heard. : Deferred. RECTAL: Deferred. LYMPHATIC: No lymphadenopathy noted in the neck. EXTREMITIES: No edema or cyanosis. No clubbing. MUSCULOSKELETAL: No acute joint deformities or swelling SKIN: There are no significant rashes or ecchymosis NEUROPSYCHIATRIC: The patient is alert and oriented x3. Appears to be in a good mood. No tremors or rigidity noted. Data Other data: Myocardial perfusion imaging January 2022 #1. Myocardial perfusion imaging revealing small area of decreased tracer uptake in the mid and apical inferior wall region, with an area of inconsistent reversibility in the mid inferior region, suggesting myocardial scarring with some ischemia in the distribution of the right coronary artery. However because of the inconsistency, the reliability is questionable. #2. Normal LV ejection fraction 68%. #3. LV wall motion analysis revealing no gross wall motion abnormalities. #4. Normal LV volume A&P Assessment and plan (1) Atherosclerotic heart disease of [place] coronary artery with unstable angina pectoris: In view of the patient's ongoing and worsening symptoms, it was thought to be appropriate to consider a repeat categorization to reevaluate the coronary status and decide on further management. The risks and benefits of the procedure were discussed with the patient. The risk of bleeding, hematoma, vascular injury, myocardial infarction, myocardial perforation, malignant cardiac arrhythmias ,CVA, renal failure and other concomitant complications were explained in detail. Patient understood this well and consented to proceed. Qualifiers: [place] vs. transplanted heart: [place] heart Qualified Code(s): I25.110 - Atherosclerotic heart disease of [place] coronary artery with unstable angina pectoris (2) Hypertension: Will try to optimize his antihypertensive medications. Qualifiers: Hypertension type: essential hypertension Qualified Code(s): I10 - Essential (primary) hypertension (3) Dyslipidemia: May continue on the current medications. (4) Abnormal cardiovascular stress test: Details as mentioned above. (5) Diabetes: Will be closely monitoring his blood sugar. Qualifiers: Diabetes mellitus type: type 2 Diabetes mellitus termite control service representative insulin use: with termite control service representative use Diabetes mellitus complication status: without complication Qualified Code(s): E11.9 - Type 2 diabetes mellitus without complications; Z79.4 - detention (current) use of insulin Plan Based on the angiogram findings, further recommendations will be made. Will continue on the current medication for the time being. Scheduled for angiogram this morning. Attestations Medical Necessity Statement*: Patient may require overnight stay Coding Level of Care Code 41088 Diagnoses Atherosclerosis of [place] coronary artery of [place] heart with unstable angina pectoris I25.110 [place] vs. transplanted heart: [place] heart Essential hypertension I10 Hypertension type: essential hypertension Dyslipidemia E78.5 Abnormal cardiovascular stress test R94.39 Type 2 diabetes mellitus without complication, with long-term current use of insulin E11.9; Z79.4 Diabetes mellitus type: type 2 Diabetes mellitus termite control service representative insulin use: with correction use Diabetes mellitus complication status: without complication
--- NOTE | 2024-12-14 09:36 | PM.PROC ---
Procedure Note: Date of procedure: 12/14/24 Pre-procedure diagnosis: Angina Post-procedure diagnosis: same Procedure: Indication for the procedure: Worsening of angina Highly calcified proximal circumflex lesion. Treated with balloon angioplasty followed by drug-eluting stent postdilated with noncompliant balloon. Excellent angiographic result with MIMI-3 flow confirmed after the case. Plan: Patient was Angio-Seal he will have bedrest for 4-hour. Right radial band will come off as per his protocol. Patient was loaded with 300 mg of Plavix as he is already taking Plavix and daily basis. Continue aspirin statin Plavix resume home medications. Continue IV fluid 100 mL/h for next 5 hours Full note to be dictated Coding Level of Care Code Acute Code for Tone Tillman
[2024-12-14] MEDS: metoprolol succinate ER (24 HR) 25 mg Tablet PO (09:56)
[2024-12-14] MEDS: lisinopril 5 mg Tablet PO (09:56)
[2024-12-14] MEDS: isosorbide mononitrate ER 30 mg Tablet PO (09:56)
[2024-12-14] MEDS: nitroglycerin 0.4 mg sublingual Tablet SUBLINGUAL (09:56)
[2024-12-14] MEDS: clopidogrel 75 mg Tablet PO (09:56)
[2024-12-14] MEDS: sodium chloride 0.9% 1,000 ML 100 ML IV ×2 (09:57→15:01)
[2024-12-14 10:25] LABS: Glucose Point of Care 97 mg/dL (70-110)
[2024-12-14 12:02] LABS: Partial Thromboplastin Time 75.3 SECONDS (23.9-36.7)
--- NOTE | 2024-12-14 13:38 | P.PCN_ITS ---
Procedure Note: Date of procedure: 12/14/24 Pre-procedure diagnosis: Lifestyle limiting claudication Post-procedure diagnosis: other (Severe peripheral vascular disease) Procedure: Severe peripheral arterial disease, chronically occluded proximal to mid SFA, chronically subtotally occluded distal tibioperoneal trunk Balloon angioplasty of tibioperoneal trunk, anterior tibial artery, proximal to mid SFA with excellent angiographic result and nondenominational of flow all the way to the foot. Continue aspirin statin Plavix Add PPI Patient has severe peripheral arterial disease of right leg with chronically occluded SFA distal tibioperoneal trunk without much flow below the knee. Stage percutaneous angioplasty/intervention such as arthrectomy of the right leg in 3 to 4 weeks. Full note IV fluid 100 mL/h for 10 hours Check CBC BMP in the morning Full note to be dictated Coding Level of Care Code Acute Code for Tone Tillman
--- NOTE | 2024-12-14 14:54 | PC.NURSE ---
After speaking with Brittaney Acevedo NP, nurse stopped the 1345 dose of 75mg of Plavix as patient had already received a loading dose of plavix in quality assurance qa lab analyst and ptt was 75. Brittaney stated that the 75mg of plavix should be started tomorrow morning, which Dr Velazco had already placed an order for.
[2024-12-14 16:14] LABS: Partial Thromboplastin Time 26.3 SECONDS (23.9-36.7)
--- NOTE | 2024-12-14 16:28 | ECG_ITS ---
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
[2024-12-14 17:08] LABS: Glucose Point of Care 229 mg/dL (70-110)
--- NOTE | 2024-12-14 18:13 | PC.NURSE ---
Both Dr. Montero and Dr. Velazco texted about patient's humalog. Patient states that he is a bad diabetic . Latest blood sugar was 229. Currently no insulin ordered for patient.
[2024-12-14] MEDS: atorvastatin 40 mg Tablet PO (20:43)
[2024-12-14] MEDS: aspirin 81 mg EC Tablet PO (20:43)
[2024-12-14 21:15] LABS: Glucose Point of Care 183 mg/dL (70-110)
[2024-12-15 00:51] VITALS: BP 109/60; PULSE 88; RESP 19; O2SAT 95
[2024-12-15 03:53] LABS: Basophils % 0.4 %; Eosinophils # 0.1 10^3/uL (0.0-0.8); Eosinophils % 1.2 %; Hematocrit 41.4 % (37-53); Lymphocytes % 21.1 %; Mean Corpuscular HGB Conc 33.6 g/dL (30-55); Mean Corpuscular Hemoglobin 31.4 pg (27-33); Mean Corpuscular Volume 93.5 fl (82-101); Monocytes # 0.6 10^3/uL (0.2-0.9); Monocytes % 12.3 %; Neutrophils # 3.15 10^3/uL (1.8-7.7); Neutrophils % 64.8 %; Nucleated Red Blood Cells % 0 %; Platelet Count 192 10^3/cmm (157-399); Red Blood Count 4.43 10^6/uL (3.85-5.65); Red Cell Distribution Width 13.5 % (12.1-15.1); White Blood Count 4.87 10^3/uL (3.29-11.43)
[2024-12-15 04:15] LABS: Anion Gap 15.2 (5-19); Blood Urea Nitrogen 23 mg/dL (8-23); Carbon Dioxide 24 mmol/L (22-29); Chloride 102 mmol/L (98-107); Creatinine Clr Calc Pharmacy 63.8783; Glucose 130 mg/dL (65-115); Osmolality Calculated 289 mOsm/kg (285-295); Potassium 4.2 mmol/L (3.5-5.1); Sodium 137 mmol/L (136-145)
[2024-12-15 04:53] VITALS: BP 112/69; PULSE 75; RESP 13; O2SAT 95
[2024-12-15 06:47] LABS: Glucose Point of Care 127 mg/dL (70-110)
[2024-12-15] MEDS: isosorbide mononitrate ER 30 mg Tablet PO (07:53)
[2024-12-15] MEDS: lisinopril 5 mg Tablet PO (07:53)
[2024-12-15] MEDS: aspirin 81 mg EC Tablet PO (07:53)
[2024-12-15] MEDS: clopidogrel 75 mg Tablet PO (07:53)
--- NOTE | 2024-12-15 07:56 | PC.NURSE ---
Patient s/p LHC with right radial and right groin access. Both sites remain c,d,i without s/s of bleeding or hematoma formation observed. Patient denies chest pain and site pain. No distress observed. Patient stated, I am ready to go home.
[2024-12-15 08:00] VITALS: BP 126/70; PULSE 80; RESP 20; TEMP 37; O2SAT 93
--- NOTE | 2024-12-15 09:13 | PC.CHAP ---
Pastoral Care Encounter/Spiritual Assessment Type of Contact [] Declined jet worker visit [] Patient/Family/Request visit [] Outpatient visit [] Follow-up visit [] Physician referral [] Code/Alert [] Routine visit [] Staff referral [] Actively dying [] Patient sleeping [] Family support [] [] Out of room [] Palliative care [] [x] Receiving care in room [] Pre-surgical visit [] Trauma [] Long length of stay [] ICU visit [] Other: Relational/Emotional Strength [] Patient feels connected with others/family/visitors/staff [] Distress [] Loneliness/isolation [] Abandonment Spirituality of Patient [] Person of [place] [] Attends [employer] their [place] [] Believes in Prayer [] Reads Bible or Taoist materials [] There are Spiritual issues to be addressed Drivematic Machine Operator Interventions [] Prayer [] Active listening [] Non-anxious presence [] Spiritual/emotional support [] Crisis/trauma care [] Spiritual counseling [] Bereavement support [] Provided bereavement packet [] Provided Bible/devotional materials [] Provided toy/stuffed animal, coloring book to patient or family member [] Provided Communion [] Anointing/[place] [] Salvation [] Completed spiritual assessment [] Other: Impact on Illness or Injury [] Angry [] Fearful [] Anxious [] Often cries [] Exhaustion [] Unable to work [] Unable to attend judaism [] Unable to walk/stand [] Unable to read [] Unable to drive [] Unable to eat/drink [] Unable to sleep [] Unable to be with family [] Patient intubated [] Other: Summary Time spent with patient
--- NOTE | 2024-12-15 10:19 | PM.DCS ---
Discharge Providers Date of Admission: 12/14/24 09:29 Date of Discharge: December 15, 2024 Attending Provider at Admission: Cristian Montero MD Attending Provider at Discharge: Dr Kym Velazco Primary Care Provider: Merry Meyer MD Diagnoses at Discharge Discharge Diagnosis (1) Atherosclerotic heart disease of [place] coronary artery with unstable angina pectoris: Status: Acute Qualifiers: [place] vs. transplanted heart: [place] heart Qualified Code(s): I25.110 - Atherosclerotic heart disease of [place] coronary artery with unstable angina pectoris (2) Hypertension: Status: Chronic Qualifiers: Hypertension type: essential hypertension Qualified Code(s): I10 - Essential (primary) hypertension (3) Dyslipidemia: Status: Chronic (4) Abnormal cardiovascular stress test: Status: Acute (5) Diabetes: Status: Chronic Qualifiers: Diabetes mellitus complication status: without complication Diabetes mellitus emt intermediate insulin use: with penitentiary use Diabetes mellitus type: type 2 Qualified Code(s): E11.9 - Type 2 diabetes mellitus without complications; Z79.4 - long term care social worker (current) use of insulin Reason for Visit Reason for Visit: I25.118 Brief History: Bob Acevedo is a 74 year old male with a history of atherosclerotic heart diseas, high blood pressure, dyslipidemia and type 2 diabetes, present with increasing episodes of chest tightness, dyspnea on exertion. He had a Myocardial perfusion imaging in 2021 which was slightly abnormal. So it was decided to treat her medically at that time. But lately he been having symptoms of exertional angina, with the significant limitation of his activities. His symptoms are highly suggesting underlying coronary ischemia. He has having some unstable anginal symptoms. In view of his ongoing symptoms, history of ASHD and previous PCI, diastolic appropriate to go ahead with a repeat cardiac catheterization to reevaluate his coronary status to decide on further management. Hospital Course Hospital Course He underwent coronary angiogram on 12/14/24, finding highly calcified proximal circumflex lesion. Treated with balloon angioplasty followed by drug-eluting stent postdilated with noncompliant balloon. Right femoral Angio-Seal placed. Hemoglobin stable overnight, creatinine 1.2. Blood pressure and heart rate well controlled. Will plan to discharge home today, continue aspirin, Plavix, atorvastatin. Follow up with cardiology nurse practitioner in 7-10 days. Physical Exam Const: COMMON NORMALS: no acute distress and patient oriented x3 GENERAL APPEARANCE: cooperative ORIENTATION/CONSCIOUSNESS: Yes awake, Yes oriented to person, Yes oriented to place and Yes oriented to time Chest: COMMONS NORMALS: normal inspection of the chest and normal palpation of entire chest wall CHEST: Yes Symmetrical chest wall rise Resp: COMMON NORMALS: normal respiratory effort, No retractions, No use of accessory muscles and clear to auscultation bilaterally AUSCULTATION: clear to auscultation bilaterally Cardio: COMMON NORMALS: regular rate, regular rhythm, S1 normal heart sound present, S2 normal heart sound present, No gallops present (Cardio), No clicks present (Cardio), No murmurs present (Cardio) and No rub (Cardio) RATE: regular rate RHYTHM: regular rhythm HEART SOUNDS: S1 normal heart sound present and S2 normal heart sound present PERIPHERAL PULSES: radial pulses present positive right 2+ and femoral pulses present positive right 2+ Neuro: COMMON NORMALS: patient oriented x3 and moves all extremities SENSORIUM/ORIENTATION: Yes oriented to person, Yes oriented to place and Yes oriented to time Skin: WOUNDS: Yes surgical site (no hematoma palpable) Details: no odor Discharge Data Studies Completed and Pending Pending at discharge Category Date Time Status CENTER MANAGER request for service Routine Exams 12/14/24 07:00 Taken Laboratory Results WBC 4.87 10^3/uL (3.29-11.43) 12/15/24 03:31 RBC 4.43 10^6/uL (3.85-5.65) 12/15/24 03:31 Hgb 13.90 g/dL (11.27-16.99) 12/15/24 03:31 Hct 41.4 % (37-53) 12/15/24 03:31 MCV 93.5 fl (82-101) 12/15/24 03:31 MCH 31.4 pg (27-33) 12/15/24 03:31 MCHC 33.6 g/dL (30-55) 12/15/24 03:31 RDW 13.5 % (12.1-15.1) 12/15/24 03:31 Plt Count 192 10^3/cmm (157-399) 12/15/24 03:31 MPV 9.0 fL (7.4-10.4) 12/15/24 03:31 Neut % (Auto) 64.8 % 12/15/24 03:31 Lymph % (Auto) 21.1 % 12/15/24 03:31 Gre[place] % (Auto) 12.3 % 12/15/24 03:31 Eos % (Auto) 1.2 % 12/15/24 03:31 Baso % (Auto) 0.4 % 12/15/24 03:31 Neut # (Auto) 3.15 10^3/uL (1.8-7.7) 12/15/24 03:31 Lymph # (Auto) 1.0 10^3/uL (0.8-4.8) 12/15/24 03:31 [place] # (Auto) 0.6 10^3/uL (0.2-0.9) 12/15/24 03:31 Eos # (Auto) 0.1 10^3/uL (0.0-0.8) 12/15/24 03:31 Baso # (Auto) 0.0 10^3/uL (0.0-0.1) 12/15/24 03:31 Nucleated RBC % (auto) 0 % 12/15/24 03:31 Nucleated RBCs # 0.0 /100WBC 12/15/24 03:31 APTT 26.3 SECONDS (23.9-36.7) D 12/14/24 15:26 Sodium 137 mmol/L (136-145) 12/15/24 03:31 Potassium 4.2 mmol/L (3.5-5.1) 12/15/24 03:31 Chloride 102 mmol/L (98-107) 12/15/24 03:31 Carbon Dioxide 24 mmol/L (22-29) 12/15/24 03:31 Anion Gap 15.2 (5-19) 12/15/24 03:31 BUN 23 mg/dL (8-23) 12/15/24 03:31 Creatinine 1.2 mg/dL (0.7-1.2) 12/15/24 03:31 GFR Calculation Not Reportable 12/15/24 03:31 Glucose 130 mg/dL (65-115) H 12/15/24 03:31 POC Glucose 127 mg/dL (70-110) H 12/15/24 06:32 Calculated Osmolality 289 mOsm/kg (285-295) 12/15/24 03:31 Calcium 9.0 mg/dL (8.5-10.5) 12/15/24 03:31 Vitals Last Vital Signs Temp 98.6 F 12/15/24 08:00 Pulse 80 12/15/24 08:00 Resp 20 H 12/15/24 08:00 BP 126/70 12/15/24 08:00 Pulse Ox 93 12/15/24 08:00 O2 Del Method Room Air 12/15/24 08:00 Discharge Plan Discharge Patient Disposition: Home Condition: Stable Prescriptions: Continued aspirin [Adult Low Dose Aspirin] 81 mg tablet,delayed release (DR/EC) 81 mg PO BEDTIME isosorbide mononitrate 30 mg tablet extended release 24 hr 30 mg PO DAILY Qty: 30 5RF lisinopril 5 mg tablet 5 mg PO DAILY Qty: 90 3RF insulin glargine [Basaglar KwikPen U-100 Insulin] 100 unit/mL (3 mL) insulin pen 20 unit SUBCUT BID Qty: 15 3RF nitroglycerin [Nitrostat] 0.4 mg tablet, sublingual 0.4 mg SUBLINGUAL Q5M PRN (Reason: Chest Pain) Qty: 25 5RF atorvastatin 40 mg tablet 40 mg PO BEDTIME clopidogrel 75 mg tablet 75 mg PO DAILY metoprolol succinate 25 mg tablet extended release 24 hr 25 mg PO DAILY dapagliflozin propanediol [Farxiga] 10 mg tablet 10 mg PO DAILY Held metformin 500 mg tablet 500 mg PO BID Qty: 180 0RF Hold Instructions: Resume on 12/16/24. Discharge Orders: Discharge Order (Routine); Ordered 12/15/24 Ordered By: Brittaney Acevedo Referrals: Shraddha Ugarte BABY STROLLER RENTAL CLERK [Nurse Practitioner] - 7-10 days Discharge Diet: Advance as tolerated Discharge Activity: Resume usual activity Patient Instructions: Chest Pain - Noncardiac, Chest Pain - Chest Wall, Coronary Angioplasty (DC), Low Fat Diet (DC), Chronic Hypertension (DC), Cardiac Stress Test (GEN), Opioid Safety Activity Restrictions/Additional Instructions: No lifting over 5 pounds for the next 2 days. Discharge Date/Time: 12/15/24 13:04 Discharge Attestations Time Spent in Discharge Care*: less than 30 min Quality Metrics Clinical Quality Measures [ No reported AMI, CVA or VTE this stay] Coding Level of Care Code Acute Code for g Fwd Diagnoses Atherosclerosis of [place] coronary artery of [place] heart with unstable angina pectoris I25.110 [place] vs. transplanted heart: [place] heart Essential hypertension I10 Hypertension type: essential hypertension Dyslipidemia E78.5 Abnormal cardiovascular stress test R94.39 Type 2 diabetes mellitus without complication, with long-term current use of insulin E11.9; Z79.4 Diabetes mellitus complication status: without complication Diabetes mellitus penitentiary insulin use: with penitentiary use Diabetes mellitus type: type 2
[2024-12-15 11:47] LABS: Glucose Point of Care 272 mg/dL (70-110)
--- NOTE | 2024-12-15 13:23 | PC.NURSE ---
Patient discharged to home. Instruction provided post [facility] site care with restrictions, follow up needs and no medication changes. Sites remain c,d,i without s/s of bleeding or hematoma formation observe. Patient verbalized complete understanding. Stent card given to patient. IV and telemetry removed.
== END 2024-12-15 13:04 | disposition home or self-care (01) ==
LOC: CSU 09:39
PROVIDERS: Internal Medicine Cardiovascular Disease; Admitting Provider Internal Medicine Cardiovascular Disease; PCP Family Medicine; Visit Provider Internal Medicine Cardiovascular Disease
DX: I25.118 Atherosclerotic heart disease of native coronary artery with other forms of angina pectoris (principal); I70.201 Unspecified atherosclerosis of native arteries of extremities, right leg; I70.92 Chronic total occlusion of artery of the extremities; I10 Essential (primary) hypertension; E78.5 Hyperlipidemia, unspecified; R94.39 Abnormal result of other cardiovascular function study; E11.9 Type 2 diabetes mellitus without complications; Z79.4 Long term (current) use of insulin; Z79.82 Long term (current) use of aspirin; Z79.84 Long term (current) use of oral hypoglycemic drugs; N40.0 Benign prostatic hyperplasia without lower urinary tract symptoms
CPT/HCPCS: 36415; 36416; 80048; 82962; 85025; 85347; 85730; 93005; 93458; 96374; 96376; 99152; 99153; C1725; C1760; C1769; C1874; C1887; C1894; C9600; G0269; G0378; J1644; J2250; J3010; J3490; J7030; Q0163; Q9967

== ENCOUNTER → 2025-01-03 13:40 | Outpatient (BNVA) | payer MEDICARE, OTHER, SELFPAY | PROVIDERS: PCP Family Medicine; Visit Provider Nurse Practitioner Family | DX: I25.10 Atherosclerotic heart disease of native coronary artery without angina pectoris (principal); K21.9 Gastro-esophageal reflux disease without esophagitis; I10 Essential (primary) hypertension | CPT/HCPCS: 36415; 80048; 99214 ==

== ENCOUNTER → 2025-02-14 09:10 | Outpatient (BNVA) | payer MEDICARE, OTHER, SELFPAY | PROVIDERS: PCP Family Medicine; Visit Provider Family Medicine | DX: E11.9 Type 2 diabetes mellitus without complications (principal); Z79.4 Long term (current) use of insulin | CPT/HCPCS: 83036 ==

== ENCOUNTER → 2025-03-21 10:49 | Outpatient (BNVA) | payer MEDICARE, OTHER, SELFPAY | PROVIDERS: PCP Family Medicine; Visit Provider Internal Medicine Cardiovascular Disease | DX: I25.10 Atherosclerotic heart disease of native coronary artery without angina pectoris (principal); I10 Essential (primary) hypertension; E78.5 Hyperlipidemia, unspecified; E11.9 Type 2 diabetes mellitus without complications; Z79.4 Long term (current) use of insulin; K21.9 Gastro-esophageal reflux disease without esophagitis; Z95.5 Presence of coronary angioplasty implant and graft; Z79.01 Long term (current) use of anticoagulants; Z79.82 Long term (current) use of aspirin | CPT/HCPCS: 99214 ==

== ENCOUNTER → 2025-05-19 11:27 | Outpatient (BNVA) | payer MEDICARE, OTHER, SELFPAY | PROVIDERS: PCP Family Medicine; Visit Provider Student in an Organized Health Care Education/Training Program | DX: Z12.11 Encounter for screening for malignant neoplasm of colon (principal) | CPT/HCPCS: 99024; 99204 ==

== ENCOUNTER → 2025-07-07 10:25 | Outpatient (BNVA) | payer MEDICARE, OTHER, SELFPAY | PROVIDERS: PCP Family Medicine; Visit Provider Family Medicine | DX: E11.9 Type 2 diabetes mellitus without complications (principal); Z79.4 Long term (current) use of insulin; R00.0 Tachycardia, unspecified | CPT/HCPCS: 83036; 84443 ==

== ENCOUNTER 2025-07-12 05:51 | Day surgery (SDC) | payer MEDICARE, OTHER, SELFPAY ==
[2025-07-12 06:06] VITALS: BP 149/85; PULSE 91; RESP 16; TEMP 36.2; O2SAT 97; BMI 27.8
--- NOTE | 2025-07-12 06:39 | ANES.PREANE2 ---
Pre-Anesthetic Assessment Height/Weight: Height 1.8 m Weight 90.718 kg Temp Pulse Resp BP Pulse Ox O2 Del Method 97.2 F L 91 16 149/85 97 Room Air 07/12/25 06:06 07/12/25 06:06 07/12/25 06:06 07/12/25 06:06 07/12/25 06:06 07/12/25 06:06 Preop Diagnosis: screening Operation Date: 07/12/25 07:00 Proposed Procedures p Colonoscopy 16862 G0121, Z12.11(Not Applicable) - Rasheed Landeros MD Familial anesthetic complications: none Last intake: Intake Last Liquid Date 07/11/25 Last Liquid Time 21:00 Last Solid Date 07/10/25 Last Solid Time 19:00 Social No alcohol and No tobacco Exam alert, oriented x 3, clear to auscultation bilaterally and regular rate & rhythm Airway Submandibular: within normal limits Cervical ROM: within normal limits Mallampati: Class II Dentition: false Pulmonary None reported CV/HEM Coronary Artery Disease, Hypertension and Myocardial Infarction (Heart Stent 01/25 and another 3 years prior) None reported Hepatic None reported GI None reported Metabolic Diabetes Mellitus and Hyperlipidemia [facility] None reported Neuropsych None reported Anesthetic Plan ASA status: 3 Anesthesia: MAC Medications/Allergies Home Medications ?Medication ?Instructions ?Recorded ?Confirmed ?Last Taken ?Type aspirin 81 mg tablet,delayed 81 mg PO BEDTIME 12/23/19 07/12/25 07/09/25 History release (Adult Low Dose Aspirin) nitroglycerin 0.4 mg sublingual 0.4 mg sublingual Q5M PRN Chest 06/24/23 07/12/25 Unknown Rx tablet (Nitrostat) Pain #25 tabs metoprolol succinate 25 mg 25 mg PO DAILY 12/14/24 07/12/25 07/10/25 History tablet,extended release 24 hr atorvastatin 40 mg tablet 40 mg PO BEDTIME #90 tabs 12/16/24 07/12/25 07/10/25 Rx lisinopril 5 mg tablet 5 mg PO DAILY #90 tabs 01/27/25 07/12/25 07/11/25 Rx insulin degludec 100 unit/mL (3 40 unit (0.4 mL) SUBCUT DAILY #45 03/17/25 08/12/25 08/11/25 Rx mL) subcutaneous pen mL metformin 500 mg tablet 500 mg PO BID #180 tabs 04/21/25 07/12/25 07/11/25 Rx clopidogrel 75 mg tablet 75 mg PO DAILY 07/06/25 07/12/25 07/05/25 History dapagliflozin propanediol 10 mg 10 mg PO DAILY 07/06/25 07/12/25 07/11/25 History tablet (Farxiga) isosorbide mononitrate 30 mg 30 mg PO DAILY 07/06/25 07/12/25 07/10/25 History tablet,extended release 24 hr Allergies Allergy/AdvReac Type Severity Reaction Status Date / Time No Known Allergies Allergy Verified 07/12/25 06:02 [facility] Anesthesia Medical History Osteoarthritis of right hip BPH with lower urinary tract symptoms without urinary obstruction CAD (coronary artery disease) Tachycardia The EKG reveals sinus rhythm with a rate of [address]-T changes. GERD (gastroesophageal reflux disease) Dyslipidemia Hypertension Diabetes Urolithiasis Surgical History Hx of cardiac cath 12.14.24 one stent in circumflex S/P coronary artery stent placement PLV H/O shoulder surgery Left rotator cuff x 2 Family History Brother CAD (coronary artery disease) Mother Diabetes Stroke Brother Diabetes Hyperlipidemia Hypertension Sister Diabetes Hyperlipidemia Hypertension Father Parkinson disease Denies family history of Clotting disorder Dementia Chronic kidney disease (CKD) Suicide Anesthesia complication Bleeding disorder Lung disease Cancer Social History Smoking and tobacco/nicotine status: never used tobacco/nicotine Alcohol intake: never Substance/Drug Use: never Adopted: No Caregiver/support person: No Lives independently: Yes Household members: spouse Marital status: Number of children: 3 Current occupational status: 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
--- NOTE | 2025-07-12 07:06 | W.PM.OPSFHP ---
Same Day Surgery H&P Indication for Procedure/HPI DATE OF PROCEDURE: July 12, 2025 CHIEF COMPLAINT/INDICATIONFOR SURGICAL PROCEDURE: screening colonoscopy PREOP DIAGNOSIS: screening colonoscopy PLANNED PROCEDURE: Operation Date: 07/12/25 07:00 Proposed Procedures p Colonoscopy 60094 G0121, Z12.11(Not Applicable) - Rasheed Landeros MD Medications/Allergies* Home Medications ?Medication ?Instructions ?Recorded ?Confirmed ?Type aspirin 81 mg tablet,delayed 81 mg PO BEDTIME 12/23/19 07/12/25 History release (Adult Low Dose Aspirin) metoprolol succinate 25 mg 25 mg PO DAILY 12/14/24 07/12/25 History tablet,extended release 24 hr clopidogrel 75 mg tablet 75 mg PO DAILY 07/06/25 07/12/25 History dapagliflozin propanediol 10 mg 10 mg PO DAILY 07/06/25 07/12/25 History tablet (Farxiga) isosorbide mononitrate 30 mg 30 mg PO DAILY 07/06/25 07/12/25 History tablet,extended release 24 hr Allergies/Adverse Reactions Allergy/AdvReac Type Severity Reaction Status Date / Time No Known Allergies Allergy Verified 07/12/25 06:02 Pertinent History/Comorbid Conditions* Medical History (Updated 07/07/25 @ 10:25 by Merry Meyer MD) Osteoarthritis of right hip BPH with lower urinary tract symptoms without urinary obstruction CAD (coronary artery disease) Tachycardia The EKG reveals sinus rhythm with a rate of [address]-T changes. GERD (gastroesophageal reflux disease) Dyslipidemia Hypertension Diabetes Urolithiasis Surgical History (Updated 02/14/25 @ 09:01 by Merry Meyer MD) Hx of cardiac cath 12.14.24 one stent in circumflex S/P coronary artery stent placement PLV H/O shoulder surgery Left rotator cuff x 2 Family History (Updated 11/16/20 @ 15:57 by Marilyn Hunter RN) Diabetes Mother Brother Sister CAD (coronary artery disease) Brother Hyperlipidemia Brother Sister Hypertension Brother Sister Parkinson disease Father Stroke Mother Denies family history of Clotting disorder Dementia Chronic kidney disease (CKD) Suicide Anesthesia complication Bleeding disorder Lung disease Cancer Social History Smoking and tobacco/nicotine status: never used tobacco/nicotine Alcohol intake: never Substance/Drug Use: never Adopted: No Caregiver/support person: No Lives independently: Yes Household members: spouse Marital status: Number of children: 3 Current occupational status: retired 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
[2025-07-12 07:48] VITALS: BP 105/67; PULSE 71; RESP 14; TEMP 36.6; O2SAT 96
[2025-07-12 08:04] VITALS: BP 101/66; PULSE 69; RESP 18
--- NOTE | 2025-07-12 08:30 | ANE.PACU2 ---
Inpatient post-anesthesia follow up: Airway intact: Yes Vital signs: Temperature 97.8 F Pulse Rate 69 Respiratory Rate 18 Blood Pressure 101/66 Pulse Oximetry 96 Oxygen Delivery Me thod Room Air Oxygen Flow Rate Fraction of Inspir ed Oxygen Hydration adequate: Yes Nausea and vomiting: No Pain level: 1 Mental status: Baseline
--- NOTE | 2025-07-12 14:04 | PC.NURSE ---
0725 OPENED LARGE SNARE BUT WAS NOT WHAT WANTED.
== END 2025-07-12 08:30 | disposition home or self-care (01) ==
PROVIDERS: PCP Family Medicine; Visit Provider Student in an Organized Health Care Education/Training Program
PROC: 0DJD8ZZ Inspection of Lower Intestinal Tract, Via Natural or Artificial Opening Endoscopic (ICD-10-PCS; CPT 45378; principal; 2025-07-12 07:00)
DX: Z12.11 Encounter for screening for malignant neoplasm of colon (principal); K57.30 Diverticulosis of large intestine without perforation or abscess without bleeding; K51.40 Inflammatory polyps of colon without complications; K52.9 Noninfective gastroenteritis and colitis, unspecified; Z79.82 Long term (current) use of aspirin; I25.10 Atherosclerotic heart disease of native coronary artery without angina pectoris; R00.0 Tachycardia, unspecified; K21.9 Gastro-esophageal reflux disease without esophagitis; E78.5 Hyperlipidemia, unspecified; I10 Essential (primary) hypertension; E11.9 Type 2 diabetes mellitus without complications; N20.9 Urinary calculus, unspecified; I25.2 Old myocardial infarction; Z95.5 Presence of coronary angioplasty implant and graft; Z79.4 Long term (current) use of insulin; Z79.84 Long term (current) use of oral hypoglycemic drugs
CPT/HCPCS: 36416; 45380; 45385; 82962; 88305; J2704; J7030

== ENCOUNTER 2025-07-15 08:48 | Outpatient (CLI) | payer MEDICARE, OTHER, SELFPAY ==
--- NOTE | 2025-07-15 09:15 | FL_ITS ---
WS: [id number] Barium enema, 07/15/2025 Clinical Data: Incomplete colonoscopy 3 days ago Comparison: None. Findings: The preliminary film was normal. The barium was introduced in a retrograde fashion to fill the entire colon. No polyps, masses, erosions, fistula, external deformity or obstruction was seen. The cecum was filled but no reflux into the ileocecal valve occurred. There were scattered sigmoid diverticula but no evidence of diverticular colitis. The post evacuation images were normal. FL/FL barium enema [id number] Impression: 1. Scattered sigmoid diverticula. 2. Negative barium enema.
== END 2025-07-15 08:49 | disposition home or self-care (01) ==
LOC: RAD 08:49
PROVIDERS: PCP Family Medicine; Visit Provider Student in an Organized Health Care Education/Training Program
DX: Z12.11 Encounter for screening for malignant neoplasm of colon (principal); K57.30 Diverticulosis of large intestine without perforation or abscess without bleeding
CPT/HCPCS: 74270

== ENCOUNTER → 2025-07-25 08:59 | Outpatient (BNVA) | payer MEDICARE, OTHER, SELFPAY | PROVIDERS: PCP Family Medicine; Visit Provider Student in an Organized Health Care Education/Training Program | DX: Z09 Encounter for follow-up examination after completed treatment for conditions other than malignant neoplasm (principal) | CPT/HCPCS: 99213 ==

== ENCOUNTER → 2025-10-07 10:33 | Outpatient (BNVA) | payer MEDICARE, OTHER, SELFPAY | PROVIDERS: PCP Family Medicine; Visit Provider Internal Medicine Cardiovascular Disease | DX: R07.2 Precordial pain (principal) | CPT/HCPCS: 93005; 99214 ==

== ENCOUNTER 2025-10-14 07:39 | Outpatient (CLI) | payer MEDICARE, OTHER, SELFPAY ==
--- NOTE | 2025-10-14 07:41 | ECG_ITS ---
[facility] Test Date: 2025-10-14 Pat Name: Bob Acevedo Department: Room: Gender: Male Learning Facilitator: : 1950 Requested By: Cristian Montero Order Number: [id number] Arnold MD: Danny Vergara M.D. Interpretive Statements Findings: the patient's baseline blood pressure was 148/78 mmHg with a heart rate of 94 bpm. The patient exercised on the treadmill using the Kali protocol for total of 4 minutes and 56 seconds achieving 7 METS and reaching a maximum heart rate of 140 bpm which was 95% of the patient's maximal predicted heart rate. The maximum blood pressure was 164/88 mmHg. The baseline EKG showed normal sinus rhythm with no ST or T wave abnormalities. There were no ST or T wave abnormalities or arrhythmias with stress test or in recovery. CONCLUSION: 1. Exercise capacity was average for age. 2. Heart rate response was appropriate. 3. Blood pressure response was appropriate. 4. No symptoms of angina during exercise. 5. Electrocardiogram portion of the stress test without evidence of ischemia. 6. Nuclear scan will be documented separately. Electronically Signed On 10-14-2025 13:33:07 MEDIA CONSULTANT by Danny Vergara M.D. [email or web address]
--- NOTE | 2025-10-14 07:42 | NMCV_ITS ---
NM bear perf SPECT r/s* [id number] Bob Acevedo Age: 75 Gender: M : 1950 Exam Date: 10/14/2025 08:27 Ordering Phys: Cristian Montero MD ([email or web address]) Technologist: TENA Galarza Exam Location: [facility] Indications: cp STRESS TEST Please see separate stress test report in [facility] for full findings IMAGE PROTOCOL Rest/Stress 1 Radiopharmaceutical Dose (mCi) Administration Site Administered by Rest: Tc-99m 10.5 IV TENA Galarza Sestamibi Stress:Tc-99m 32.9 IV Zo Manzano ESTHETICIAN/SKIN THERAPIST Sestamibi Rest: 14-Oct-2025 60 Discovery 630 Stress: 14-Oct-2025 15 Discovery 630 Radiopharmaceutical was injected at 88 % maximum heart rate. Images obtained in supine and prone position. SPECT RESULTS Technical Quality: Good Raw Data Analysis: Normal Image Corrections: No attenuation or motion correction applied Summed Stress Score: 2 Summed Rest Score: 3 Summed Difference Score: 1 PERFUSION FINDINGS There is a small area of mildly to moderately decreased tracer counts in the inferolateral wall that is worse on the resting images compared to the stress images consistent with attenuation artifact. FUNCTIONAL RESULTS (calculated via Gated SPECT) Stress Image LV EF (%): 65 Stress EDV (mL):57 TID: 0.86 Stress ESV (mL):20 FUNCTIONAL FINDINGS: There is normal left ventricular systolic function. Ejection fraction 65%. IMPRESSIONS 1. Myocardial perfusion images show a small area of attenuation artifact in the inferolateral wall. There is no ishemia or infarction. 2. There is normal left ventricular systolic function. Ejection fraction 65%. Danny Vergara MD, FACC (Electronically Signed) Final Date: 14 October 2025 12:47 S
[2025-10-14 08:11] VITALS: BMI 28.7
[2025-10-14 09:16] VITALS: BP 140/70; PULSE 96
== END 2025-10-14 07:40 | disposition home or self-care (01) ==
LOC: CDL 07:40
PROVIDERS: PCP Family Medicine; Visit Provider Internal Medicine Cardiovascular Disease
DX: R07.9 Chest pain, unspecified (principal); R93.1 Abnormal findings on diagnostic imaging of heart and coronary circulation
CPT/HCPCS: 36415; 78452; 93017; A9500